=== PATIENT | female | born 1970 | race Hispanic/Latino ===

== ENCOUNTER 2017-08-06 16:23 | Outpatient (CLI) | payer BC ==
--- OUTSIDE RECORDS SUMMARY | 2017-08-06 16:26 | XMS | Clinical Summary ---
:1970 Author Organization [facility] Address [address] [place] [address] Phone Care Team Providers Name Role Phone , Primary Care Provider Unavailable Allergies Not on File Current Medications Not on file Active Problems Not on file Social History Tobacco Use Types Packs/Day Years Used Date Never Assessed Sex Assigned at Date Recorded Not on file Last Filed Vital Signs Not on file Plan of Treatment Not on file Results Not on filefrom Last 3 Months
[2017-08-06 17:25] LABS: Hematocrit 40.3 % (36.0-47.0); Mean Platelet Volume 8.3 fL (7.4-10.4); Red Blood Cell (RBC) Count 4.44 mill/uL (4.20-5.40); White Blood Cell (WBC) Count 7.2 thou/uL (4.8-10.8)
== END 2017-08-06 16:24 | disposition home or self-care (01) ==
LOC: LABBT 16:23
PROVIDERS: ATTEND Obstetrics & Gynecology
DX: Z01.812 Encounter for preprocedural laboratory examination (principal); N95.0 Postmenopausal bleeding; D25.9 Leiomyoma of uterus, unspecified
CPT/HCPCS: 84703; 85027; 86850; 86900; 86901

== ENCOUNTER 2017-08-09 07:37 | Day surgery (SDC) | payer BC ==
[2017-08-06 16:45] VITALS: BMI 30.5
--- OUTSIDE RECORDS SUMMARY | 2017-08-09 07:40 | XMS | Clinical Summary ---
:1970 Author Organization [facility] Address [address] [place] [address] Phone Care Team Providers Name Role Phone [...]
[2017-08-09] MEDS ORDERED: Fentanyl 100 MCG/2 ML VIAL ONE ×2 (09:37→11:10)
[2017-08-09] MEDS ORDERED: Propofol 200 MG/20 ML VIAL ONE (10:01)
[2017-08-09] MEDS ORDERED: Lidocaine 1% PF 5 ML VIAL ONE (10:01)
[2017-08-09] MEDS ORDERED: Ondansetron HCl/PF 4 MG/2 ML Vial ONE (10:01)
[2017-08-09] MEDS ORDERED: Dexamethasone 20 MG/5 ML VIAL ONE (10:01)
[2017-08-09] MEDS ORDERED: HYDROcodone/Acetaminophen 5/325 mg Tablet ONE (13:15)
--- NOTE | 2017-08-09 13:27 | OP ---
DATE OF PROCEDURE: 08/09/2017 PREOPERATIVE DIAGNOSES: 1. Postmenopausal bleeding. 2. Suspected submucosal uterine fibroid. 3. Failed endometrial biopsy in clinic. POSTOPERATIVE DIAGNOSES: 1. Postmenopausal bleeding. 2. Primarily Intramural uterine fibroid. 3. Appears to have endometrial atrophy. SURGEON: Daisy Estrella D.O. PROCEDURE: 1. Operative hysteroscopy with hysteroscopic guided tissue removal using a morcellation device. 2. Dilation and curettage. COMPLICATIONS: None. FINDINGS: Normal appearing external genitalia, normal vaginal and cervical epithelium, atrophic appearing endometrial canal with bilateral patent fallopian tube ostia, a slight bulge on the right aspect of the uterus and posterior aspect of the uterus that may be a portion of the mostly intramural fibroid. ESTIMATED BLOOD LOSS: Minimal. IV FLUIDS: 800 mL. URINE OUTPUT: 150 mL. Hysteroscopic fluid deficit 240 mL of normal saline. INDICATIONS FOR THE PROCEDURE: Ms. Roman Quiles is a 47-year-old who presented to clinic for an annual examination and found to have a few episodes of postmenopausal bleeding. She underwent a transvaginal sonogram that demonstrated a uterine fibroid thought to possibly be submucosal in origin. She had undergone an attempted endometrial biopsy in clinic; however, there was no intact endometrial tissue. The patient was counseled on attempt to repeat endometrial biopsy versus hysteroscopy with D&C. The patient desired to have a hysteroscopy with dilation and curettage and possible hysteroscopic myomectomy if the fibroid was able to be accessed hysteroscopically. The patient presented this morning appropriately consented and her laboratory was reviewed. PROCEDURE IN DETAIL: The patient was brought to the operating room, she was placed under general anesthesia. The patient was placed in dorsal lithotomy position using candy cane stirrups. She was prepped and draped in the sterile fashion. A Mora catheter was placed. An official timeout was performed. A single sided speculum was placed into the vagina and the anterior aspect of the cervix was grasped using a single tooth tenaculum. The cervix was sequentially dilated using Reynaldo dilators. The uterus was sounded to approximately 8.5 cm. The Truclear 5 mm hysteroscope was inserted into the cervical canal and into the endometrial canal, noting atrophic appearing endometrium with bilateral fallopian tube ostia. There was a slight bulge from the right aspect of the uterine cavity and posterior aspect of the uterine cavity which may be a small portion of the mucosal portion of the intramural fibroid. This tissue was sampled using the hysteroscopic morcellator and the tissue was collected. The hysteroscope was then removed. Dilation and curettage was also performed and this tissue was sent in the same specimen container. The tenaculum and speculum were then removed from the vagina. The tenaculum site was hemostatic. The patient was placed back in supine position. She was extubated without difficulty. All counts were correct x2. MTDD
== END 2017-08-09 14:00 | disposition home or self-care (01) ==
LOC: SDC 07:37
PROVIDERS: ATTEND Obstetrics & Gynecology
PROC: 0UDB7ZX Extraction of Endometrium, Via Natural or Artificial Opening, Diagnostic (ICD-10-PCS; principal; 2017-08-09)
PROC: 0UB98ZZ Excision of Uterus, Via Natural or Artificial Opening Endoscopic (ICD-10-PCS; principal; 2017-08-09)
PROC: 0UJD8ZZ Inspection of Uterus and Cervix, Via Natural or Artificial Opening Endoscopic (ICD-10-PCS; principal; 2017-08-09)
DX: N95.0 Postmenopausal bleeding (principal); D25.1 Intramural leiomyoma of uterus; Z79.899 Other long term (current) drug therapy; Z88.0 Allergy status to penicillin; Z98.890 Other specified postprocedural states
CPT/HCPCS: 88305; 96374; J1100; J2001; J2405; J2704; J3010

== ENCOUNTER 2019-04-17 14:12 | Outpatient (CLI) | payer BC ==
[2019-04-17] MEDS ORDERED: Gadobenate Dimeglumine 529 MG/1 ML (20ML VIAL) ONE (14:35)
--- NOTE | 2019-04-18 07:29 | MRI ---
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 COMPARISON: There are no comparisons available. TECHNIQUE: Multiplanar, multisequence MR images were obtained of the chest and right upper torso, utilizing a br achial plexus protocol. MultiHance 17 mL was utilized for the examination. FINDINGS: Along the course of the right brachial plexus, there is no abnormal mass, lymphadenopathy, or signal abnormality grossly evident. No abnormal enhancement is noted. There is mild atrophy of the right i nfraspinatus musculature. There is post surgical change of a distal clavicle excision and right rota tor cuff repair. There is some prominent tendinosis of the supraspinatus tendon, with potential for a possible partial-thickness articular surface tear of both the supraspinatus and anterior infraspina tus; however, the field of view limits image detail of this region. No visible chest wall mass is ev ident. There is mild degenerative change of the sternoclavicular joints. No bone marrow signal abno rmality is grossly evident, outside of the susceptibility artifact from the patient's suture anchors in the right shoulder. IMPRESSION: No suspicious signal abnormality, enhancement, or mass seen along the course of the right brachial pl exus. Concern for recurrent tear of the right rotator cuff with mild right infraspinatus atrophy. Recommen d MR of the right shoulder for further evaluation. MR arthrogram may be more sensitive for partial t hickness tear evaluation. POS: [facility]ZEL
== END 2019-04-17 14:13 | disposition home or self-care (01) ==
LOC: TBSIIMAG 14:12
DX: R29.898 Other symptoms and signs involving the musculoskeletal system (principal)
CPT/HCPCS: 71552; A9577

== ENCOUNTER 2019-09-01 15:14 | Outpatient (CLI) | payer BC ==
--- NOTE | 2019-09-08 15:31 | MMO ---
Bilateral MAMMO Bilat Screen [facility]. CLINICAL HISTORY: Patient is 49 years old and is seen for screening. The patient has no family history of breast cancer. The patient has no personal history of cancer. VIEWS: The views performed were: bilateral craniocaudal with tomosynthesis; bilateral mediolateral oblique with tomosynthesis; and bilateral exaggerated craniocaudal with tomosynthesis. This study has been interpreted with the assistance of computer-aided detection. MAMMOGRAM FINDINGS: There are scattered fibroglandular densities. There are no suspicious masses, suspicious calcifications, or new areas of architectural distortion. IMPRESSION: THERE IS NO MAMMOGRAPHIC EVIDENCE OF MALIGNANCY. A ROUTINE FOLLOW-UP MAMMOGRAM IN 1 YEAR IS RECOMMENDED. THE RESULTS OF THIS EXAM WERE SENT TO THE PATIENT. ACR BI-RADS Category 1 - Negative MAMMOGRAPHY NOTE: 1. A negative mammogram report should not delay a biopsy if a dominant of clinically suspicious mass is present. 2. Approximately 10% to 15% of breast cancers are not detected by mammography. 3. Adenosis and dense breasts may obscure an underlying neoplasm. Reported by: JOSÉ LOZADA MD Electonically Signed: [id number]
== END 2019-09-01 15:15 | disposition home or self-care (01) ==
LOC: BICMAMMO 15:14
PROVIDERS: ATTEND Family Medicine
DX: Z12.31 Encounter for screening mammogram for malignant neoplasm of breast (principal)
CPT/HCPCS: 77063; 77067